=== PATIENT | female | born 1960 | race Caucasian/White ===

== ENCOUNTER 2017-02-03 08:18 | Inpatient (IN) | payer MEDICAID ==
--- NOTE | 2017-02-03 08:42 | ED Physician Chart ---
ED Chief Complaint/HPI - Patient Information Date Seen:: 02/03/17 Time Seen:: 08:25 Chief Complaint:: G-Tube Dysfunction History of Present Illness:: onset x 2 days of G-Tube Dysfunction with redness around G-Tube site; no report of trauma, H/As, neck pain, C/P, cough, SOB, Abd/Flank Pain, A/N/V/D/C, fever, chills, or urinary s/s Allergies:: Allergies Allergy/AdvReac Type Severity Reaction Status Date / Time codeine Allergy Verified 02/03/17 08:23 Vitals:: Vital Signs - 8 hr 02/03/17 08:23 Temp 98.1 F HR 81 RR 18 BP 145/88 O2 Sat % 96 Historian:: Patient, EMS Review:: Nurse's Note Reviewed, EMS run form Reviewed ED Review of Systems - Review of Systems General/Constitutional: Fever, No chills, No weight loss, No weakness, No diaphoresis, No edema, No loss of appetite Skin: No skin lesions, No rash, No bruising Head: No headache, No light-headedness Eyes: No loss of vision, No pain, No diplopia ENT: No earache, No nasal drainage, No sore throat, No tinnitus Neck: No neck pain, No swelling, No thyromegaly, No stiffness, No mass noted Cardio Vascular: No chest pain, No palpitations, No PND, No orthopnea, No edema Pulmonary: SOB, Cough, No sputum, No wheezing GI: No nausea, No vomiting, No diarrhea, No pain, No melena, No hematochezia, No constipation, No hematemesis G/U: No dysuria, No frequency, No hematuria 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, No abnormal vaginal bleed, No contraction Musculoskeletal: No bone or joint pain, No back pain, No muscle pain Endocrine: No polyuria, No polydipsia Psychiatric: No prior psych history, No depression, No anxiety, No suicidal ideation, No homicidal ideation, No auditory hallucination, No visual hallucination Hematopoietic: No bruising, No lymphadenopathy Allergic/Immuno: No urticaria, No angioedema Neurological: No syncope, Focal symptoms, Weakness, Paresthesia, Headache, No seizure, Dizziness, Confusion, Vertigo ED Past Medical History - Past Medical History Obtainable: Yes Past Medical History: HTN, Asthma/COPD, CVA/TIA, Dyslipidemia Family History: Diabetes Melitus, HTN Social History: Non Smoker, No Alcohol, No Drug Use, Single, Care Facility Surgical History: PEG/GTube (Tracheostomy) Psychiatricy History: None Medication: Reviewed Family Medical History - Family Member Mother History Unknown: Yes ED Physical Exam - Physical Examination General/Constitutional: Awake, Well-developed, well-nourished, Alert, No distress, GCS 15, Non-toxic appearing, Ambulatory Head: Atraumatic Eyes: Lids, conjuctiva normal, PERRL, EOMI Skin: Nl inspection, No rash, No skin lesions, No ecchymosis, Well hydrated, No lymphadenopathy ENMT: External ears, nose nl, Nasal exam nl, Lips, teeth, gums nl Neck: Nontender, Full ROM w/o pain, No JVD, No nuchal rigidity, No bruit, No mass, No stridor Respiratory: Nl effort/Exclusion, Clear to Auscultation, No Wheeze/Rhonchi/Rales Cardio Vascular: RRR, No murmur, gallop, rubs, NL S1 S2 GI: No tenderness/rebounding/guarding, No organomegaly, No hernia, Normal BS's, Nondistended, No mass/bruits, No McBurney tenderness Other GI comments:: + G-Tube Dysfunction with localized Cellulitis : No CVA tenderness Extremities: No tenderness or effusion, Full ROM, normal strength in all extremities, No edema, Normal digits & nails Neuro/Psych: Alert/oriented, DTR's symmetric, Normal sensory exam, Normal motor strength, Judgement/insight normal, Mood normal, Normal gait, No focal deficits Other Neuro/Psych comments:: + left facial droop due to old CVA Misc: Normal back, No paraspinal tenderness ED Labs/Radiology/EKG Results - Lab Results Comments:: U/A: + Pyuria - Radiology Results Comments:: CXR: NAD ED Septic Shock - . Is Septic Shock (SBP<90, OR Lactate>4 mmol\L) present?: No - <6hrs of presentation: Vital Signs: Vital Signs - 8 hr 02/03/17 08:23 Temp 98.1 F HR 81 RR 18 BP 145/88 O2 Sat % 96 ED Reassessment (Disposition) - Reassessment Reassessment Condition:: Improved - Diagnosis Diagnosis:: G-Tube Dysfunction; Cellulitis; UTI; Urospsis; Sepsis - Aftercare/Follow up Instructions Aftercare/Follow-Up Instructions:: Counseled pt regarding lab results/diagnosis & need follow up, Counseled pt & family regarding lab results/diagnosis & need follow up - Patient Disposition Discharge/Transfer:: Acute Care w/in this hosp Accepting Physician:: Dr. Thompson Time Called:: 1045 Time Responded:: 10:45 Admitted to:: Med/Surg Spoke to:: Dr. Thompson Admitting Medical Physician:: Dr. Thompson Condition at Disposition:: Stable, Improved
[2017-02-03] MEDS ORDERED: cefTRIAXone 1 GM in Sodium Chloride 0.9% 50 ML IV ONE (08:45)
[2017-02-03 08:57] LABS: % BASOPHILS 1.1 % (0.0-2.0); % EOSINOPHILS 2.3 % (0.0-5.0); % LYMPHOCYTES 39.2 % (20.0-50.0); % MONOCYTES 8.5 % (2.0-10.0); % NEUTROPHILS 48.9 % (40.0-80.0); HEMATOCRIT 46.3 % (41.0-60); HEMOGLOBIN 15.3 gm/dL (12-16); MEAN CELL VOLUME 92.6 fl (81-100); MEAN CORPUSCULAR HEMOGLOBIN 30.7 pg (27.0-31.0); MEAN CORPUSCULAR HGB CONC 33.1 pg (28.0-36.0); MEAN PLATELET VOLUME 8.8 fl; NEUTROPHILE ABSOLUTE 3.1 Th/cmm (1.8-8.0); PLATELET COUNT 279 Th/cmm (150-400); RED CELL DISTRIBUTION WIDTH 12.6 % (11.5-20.0); WHITE BLOOD COUNT 6.6 Th/cmm (4.8-10.8)
--- NOTE | 2017-02-03 09:09 | Diagnostic Imaging Report ---
Portable chest x-ray History: Pain Allowing for portable technique the heart size is normal. Atherosclerotic calcification seen in the aorta. No focal pulmonary parenchymal processes. No hilar or mediastinal abnormalities. Impression: 1. No acute abnormalities 2. Atherosclerotic vascular changes
[2017-02-03 09:12] LABS: PROTHROMBIN TIME (TEST) 10.4 SECONDS (9.5-11.5)
[2017-02-03 09:16] LABS: ALB/GLOB RATIO 1.5 (1.0-1.8); ALKALINE PHOSPHATASE 76 U/L (34-104); ANION GAP 11.2 (7.0-16.0); BILIRUBIN,TOTAL 0.7 mg/dL (0.3-1.0); BUN - UREA NITROGEN 16 mg/dL (7-25); BUN/CREATININE RATIO 26.7; CALCIUM SERUM 9.8 mg/dL (8.6-10.3); CARBON DIOXIDE 30.3 mEq/L (21.0-31.0); CHLORIDE 103 mEq/L (98-107); CHOLESTEROL 167 mg/dL (<200); CREATININE - SERUM 0.6 mg/dL (0.6-1.2); GLUCOSE 92 mg/dL (70-105); POTASSIUM SERUM 3.5 mEq/L (3.5-5.1); SGOT 18 U/L (13-39); SGPT/ALT 22 U/L (7-52); SODIUM SERUM 141 mEq/L (136-145); TRIGLYCERIDES 81 mg/dL (<150)
[2017-02-03 09:22] LABS: PROTHROMBIN TIME (TEST) 10.4 SECONDS (9.5-11.5)
[2017-02-03 09:51] LABS: URINE BILIRUBIN NEGATIVE (NEGATIVE); URINE BLOOD TRACE (NEGATIVE); URINE GLUCOSE (UA) NEGATIVE (NEGATIVE); URINE KETONE NEGATIVE (NEGATIVE); URINE PROTEIN TRACE mg/dL (NEGATIVE)
[2017-02-03 09:57] LABS: URINE COLOR YELLOW
[2017-02-03 10:01] LABS: URINE BACTERIA 3+ /hpf (NONE SEEN); URINE EPITHELIAL CELLS MODERATE /lpf (FEW)
[2017-02-03] MEDS ORDERED: Albuterol/Ipratropium Neb 3 ML AERS HHN PRN (12:23)
[2017-02-03] MEDS ORDERED: Magnesium Hydroxide (MOM) 30 mL UDC GT PRN (12:23)
[2017-02-03] MEDS ORDERED: Albuterol Nebulizer 2.5mg/3mL HHN PRN (12:29)
[2017-02-03] MEDS ORDERED: guaiFENesin 200 MG/10 ML UDC PO PRN (12:29)
[2017-02-03] MEDS ORDERED: Ipratropium Neb 0.5 mg/2.5 mL UD HHN PRN (12:29)
--- NOTE | 2017-02-03 12:29 | Internal Medicine Prog Note ---
Internal Medicine Subjective - Subjective Service Date: 02/03/17 ([id number] HNP DICTATED) Internal Medicine Objective - Results Result Diagrams: 02/03/17 08:30 02/03/17 08:30 Recent Labs: Laboratory Last Values WBC 6.6 Th/cmm (4.8-10.8) 02/03/17 08:30 RBC 5.00 Mil/cmm (3.80-5.10) 02/03/17 08:30 Hgb 15.3 gm/dL (12-16) 02/03/17 08:30 Hct 46.3 % (41.0-60) 02/03/17 08:30 MCV 92.6 fl (81-100) 02/03/17 08:30 MCH 30.7 pg (27.0-31.0) 02/03/17 08:30 MCHC Differential 33.1 pg (28.0-36.0) 02/03/17 08:30 RDW 12.6 % (11.5-20.0) 02/03/17 08:30 Plt Count 279 Th/cmm (150-400) 02/03/17 08:30 MPV 8.8 fl 02/03/17 08:30 Neutrophils % 48.9 % (40.0-80.0) 02/03/17 08:30 Lymphocytes % 39.2 % (20.0-50.0) 02/03/17 08:30 Monocytes % 8.5 % (2.0-10.0) 02/03/17 08:30 Eosinophils % 2.3 % (0.0-5.0) 02/03/17 08:30 Basophils % 1.1 % (0.0-2.0) 02/03/17 08:30 PT 10.4 SECONDS (9.5-11.5) 02/03/17 08:44 INR 1.00 (0.5-1.4) 02/03/17 08:44 PTT (Actin FS) 26.3 SECONDS (26.0-38.0) 02/03/17 08:44 Sodium 141 mEq/L (136-145) 02/03/17 08:30 Potassium 3.5 mEq/L (3.5-5.1) 02/03/17 08:30 Chloride 103 mEq/L (98-107) 02/03/17 08:30 Carbon Dioxide 30.3 mEq/L (21.0-31.0) 02/03/17 08:30 Anion Gap 11.2 (7.0-16.0) 02/03/17 08:30 BUN 16 mg/dL (7-25) 02/03/17 08:30 Creatinine 0.6 mg/dL (0.6-1.2) 02/03/17 08:30 Est GFR ( Amer) > 60.0 ml/min (>90) 02/03/17 08:30 Est GFR (Non-Af Amer) > 60.0 ml/min 02/03/17 08:30 BUN/Creatinine Ratio 26.7 02/03/17 08:30 Glucose 92 mg/dL (70-105) 02/03/17 08:30 Whole Bld Lactic Acid 0.79 mmol/L (0.60-1.99) 02/03/17 09:25 Calcium 9.8 mg/dL (8.6-10.3) 02/03/17 08:30 Total Bilirubin 0.7 mg/dL (0.3-1.0) 02/03/17 08:30 AST 18 U/L (13-39) 02/03/17 08:30 ALT 22 U/L (7-52) 02/03/17 08:30 Alkaline Phosphatase 76 U/L (34-104) 02/03/17 08:30 Creatine Kinase 40 U/L (30-223) 02/03/17 08:30 Troponin I 0.01 ng/mL (0.01-0.05) 02/03/17 08:30 B-Natriuretic Peptide 52.3 pg/mL (5.0-100.0) 02/03/17 08:30 Total Protein 7.5 gm/dL (6.0-8.3) 02/03/17 08:30 Albumin 4.5 gm/dL (3.7-5.3) 02/03/17 08:30 Globulin 3.0 gm/dL 02/03/17 08:30 Albumin/Globulin Ratio 1.5 (1.0-1.8) 02/03/17 08:30 Triglycerides 81 mg/dL (<150) 02/03/17 08:30 Cholesterol 167 mg/dL (<200) 02/03/17 08:30 LDL Cholesterol Direct 84 mg/dL (75-193) 02/03/17 08:30 HDL Cholesterol 64 mg/dL (23-92) 02/03/17 08:30 Urine Source MIDSTREAM 02/03/17 09:30 Urine Color YELLOW 02/03/17 09:30 Urine Clarity CLOUDY (CLEAR) H 02/03/17 09:30 Urine pH 7.0 (4.6 - 8.0) 02/03/17 09:30 Ur Specific [place] 1.015 (1.005-1.030) 02/03/17 09:30 Urine Protein TRACE mg/dL (NEGATIVE) 02/03/17 09:30 Urine Glucose (UA) NEGATIVE mg/dL (NEGATIVE) 02/03/17 09:30 Urine Ketones NEGATIVE mg/dL (NEGATIVE) 02/03/17 09:30 Urine Blood TRACE (NEGATIVE) 02/03/17 09:30 Urine Nitrate NEGATIVE (NEGATIVE) 02/03/17 09:30 Urine Bilirubin NEGATIVE (NEGATIVE) 02/03/17 09:30 Urine Urobilinogen 1.0 E.U./dL (0.2 - 1.0) 02/03/17 09:30 Ur Leukocyte Esterase LARGE (NEGATIVE) H 02/03/17 09:30 Urine RBC 2-5 /hpf (0-5) 02/03/17 09:30 Urine WBC 6-10 /hpf (0-5) H 02/03/17 09:30 Ur Epithelial Cells MODERATE /lpf (FEW) 02/03/17 09:30 Urine Bacteria 3+ /hpf (NONE SEEN) H 02/03/17 09:30 - Physical Exam Vitals and I&O: Vital Signs Temp 98.1 F 02/03/17 11:04 Pulse 82 02/03/17 11:04 Resp 16 02/03/17 11:04 BP 127/85 02/03/17 11:04 Pulse Ox 95 02/03/17 11:04 Active Medications: Current Medications Acetaminophen (Tylenol) 650 mg GT Q4HR PRN PRN Reason: PAIN OR TEMP >100.4 Stop: 04/04/17 12:22 Albuterol/Ipratropium (Duoneb Neb) 3 ml HHN Q2H PRN PRN Reason: SOB/WHEEZING Stop: 04/04/17 12:22 Amlodipine Besylate (Norvasc) 10 mg GT DAILY [facility] Stop: 04/05/17 08:59 Docusate Sodium (Colace) 100 mg PO BID [facility] Stop: 04/04/17 16:59 Enalapril Maleate (Vasotec) 20 mg GT Q12H [facility] Stop: 04/04/17 12:29 Famotidine (Pepcid) 20 mg GT Q12H [facility] Stop: 04/04/17 12:29 Hydralazine HCl (Apresoline) 50 mg GT Q8H [facility] Stop: 04/04/17 12:29 Magnesium Hydroxide (Milk Of Magnesia) 30 ml GT DAILY PRN PRN Reason: Constipation Stop: 04/04/17 12:22 Metoprolol Tartrate (Lopressor) 50 mg GT Q12H [facility] Stop: 04/04/17 12:29 Miscellaneous (Ascorbic Acid) 500 mg GT DAILY [facility] Stop: 04/05/17 08:59 Miscellaneous (Atorvastatin Calcium [Lipitor]) 40 mg GT HS [facility] Stop: 04/04/17 20:59 Miscellaneous (Ferrous Sulfate [Ferrous Sulfate]) 330 mg GT Q12H [facility] Stop: 04/04/17 12:29 Internal Medicine Assmt/Plan - Assessment Assessment: ACUTE UTI GT CELLULITIS GT MALFUNCTION ASTHMA DYSLIPIDEMIA HX TIA/CVA COPD
[2017-02-03] MEDS: D5-0.45NS 1,000 ML IV SCH (13:18)
--- NOTE | 2017-02-03 14:46 | History & Physical ---
ADMIT DATE: 02/03/2017 CHIEF COMPLAINT: G-tube malfunction. HISTORY OF PRESENT ILLNESS: This is a 56-year-old female who is a resident of [facility] who is brought here to [facility] due to G-tube malfunction. The patient's G-tube was also noted with redness around the G-tube site. No discharge noted. The patient did not have any fevers. PAST MEDICAL HISTORY: Hypertension, asthma, COPD, CVA, TIA, and dyslipidemia. SOCIAL HISTORY: The patient is a shelter resident, requiring 24-hour nursing care. PAST SURGICAL HISTORY: PEG and tracheostomy. MEDICATIONS: Please see medication reconciliation. FAMILY HISTORY: Noncontributory. REVIEW OF SYSTEMS: GENERAL: Denies any fevers, any chills. CARDIOVASCULAR: Denies chest pain. RESPIRATORY: Denies any shortness of breath or any cough. GASTROINTESTINAL: Denies nausea, vomiting, or abdominal pain. GENITOURINARY: Denies dysuria. All other systems are reviewed by me and are negative. PHYSICAL EXAMINATION: GENERAL: The patient is awake, alert, no present distress. VITAL SIGNS: Temperature 98.1, heart rate 82, blood pressure 127/85, respirations 16, and O2 95%. HEENT: Head; normocephalic, atraumatic. NECK: Supple. No mass. LUNGS: Clear bilaterally. HEART: Regular rate. ABDOMEN: Nondistended and nontender. G-tube site is noted with the redness. LABORATORY DATA: WBC 6.6, H and H 15.3 and 46.3, and platelet of 279. Sodium 141, potassium 3.5, chloride 103, BUN 16, creatinine 0.6. The patient had a urinalysis done, positive for UTI. DIAGNOSTICS: The patient had a chest x-ray done and the impression, is no acute abnormalities, atherosclerotic vascular changes. ASSESSMENT: Acute urinary tract infection, G-tube site cellulitis, G-tube malfunction, hypertension, asthma, history of cerebrovascular accident, and dyslipidemia. PLAN: The patient will be admitted to the med/surg unit. We will keep the patient n.p.o. Keep the patient on IV fluids for hydration. ____ patient on empiric IV antibiotics of Rocephin. We will monitor patient's electrolytes levels. GI will be on the case. We will continue to follow this patient. [facility]# [id number]
[2017-02-03] MEDS: cefTRIAXone 1 GM in Sodium Chloride 0.9% 50 ML IV SCH (15:22)
[2017-02-03] MEDS ORDERED: Diatrizoate Meglumine/Diatri 30 mL Sol PO ONE (16:16)
--- NOTE | 2017-02-03 19:34 | Operative Report ---
DATE OF SURGERY: 02/03/2017 PROCEDURE: G-tube replacement. DESCRIPTION OF THE PROCEDURE: The procedure took place at the bedside in the Medical[facility]Surgical unit of [facility]. The patient was kept in a supine position. The existing original type G-tube was removed by traction method. Using the same gastrocutaneous fistula site, a new 20-[place] replacement G-tube was inserted into the stomach and its inner balloon tip was inflated using 15 mL of sterile water. The outer bumper was placed as close to the skin as possible. Overlying dressing was placed. The tip was noted to be in good position. The patient tolerated the procedure well. No complications are anticipated. RECOMMENDATION: 1. We will obtain Gastrografin KUB to confirm that the G-tube is in position. Once this is confirmed, then may use G-tube for water flushes and medications and tube feedings as tolerated. 2. Oral diet as tolerated as well. Thank you Dr. Rayray Thompson for involving us in the care of your patient. If you have any further questions, please call us. JOB# [id number] [email or web address]
[2017-02-03] MEDS: Ferrous Sulfate 300 MG/5 ML UDC PO SCH (21:54)
--- NOTE | 2017-02-03 22:18 | Consultation ---
DATE OF CONSULTATION: 02/03/2017 REQUESTING PHYSICIAN: Rayray Thompson M.D. REASON FOR CONSULTATION: G-tube malfunction. HISTORY OF PRESENT ILLNESS: The patient is a 56-year-old female who is a residential resident with hypertension, COPD, asthma, old stroke, old TIA, and dyslipidemia with her existing G-tube. There was noted to be leakage around the G-tube and it was noted to be malfunctioning. We were asked to evaluate the patient for consideration of G-tube replacement. PAST MEDICAL HISTORY: As above. PAST SURGICAL HISTORY: The patient has had a previous tracheostomy, which has now been decannulated. MEDICATIONS: Here are acetaminophen, albuterol, amlodipine, vitamin C, Lipitor, Rocephin, Colace, Vasotec, Pepcid, iron, Robitussin, hydralazine, milk of magnesia, Lopressor, and Zofran. ALLERGIES: CODEINE. SOCIAL HISTORY: No recent tobacco, alcohol, or drugs. FAMILY HISTORY: Noncontributory. REVIEW OF SYSTEMS: Negative. PHYSICAL EXAMINATION: VITAL SIGNS: Temperature 98.2, blood pressure 138/91, pulse of 104, respirations 18, and O2 sat 98%. GENERAL: The patient is well-developed thin female in no acute distress. HEENT: Sclerae nonicteric. Oropharynx is clear. CARDIOVASCULAR: Regular rate and rhythm. LUNGS: Clear to auscultation bilaterally. ABDOMEN: Soft, nontender. There is an intact original type G-tube with broken stem. EXTREMITIES: No clubbing, cyanosis, or edema. RECTAL: Deferred. LABORATORY DATA AND IMAGING: Complete blood count is normal. INR is normal. Creatinine is normal. Liver enzymes and cholesterol are normal. Albumin is 4.5. IMPRESSION: 1. Dysphagia with G-tube malfunction, requires G-tube replacement. 2. Hypertension. 3. Chronic obstructive pulmonary disease. 4. Old stroke. RECOMMENDATIONS: 1. G-tube replacement to take place at bedside. 2. Further recommendations following this intervention. 3. Continue medications for now. Thank you Dr. Rayray Thompson for involving us in the care of your patient. If you have any further questions, please call us. JOB# [id number] [facility]
[2017-02-04] MEDS: D5-0.45NS 1,000 ML IV SCH ×2 (00:41→16:30)
--- NOTE | 2017-02-04 08:00 | Diagnostic Imaging Report ---
Exam: Gastrostomy tube placement. Findings: After injection of contrast material into the gastrostomy tube there is normal opacification of the stomach. IMPRESSION: gastrostomy tube in stomach . Incidentally noted fecal impaction.
[2017-02-04] MEDS: Ferrous Sulfate 300 MG/5 ML UDC PO SCH ×2 (08:48→22:13)
--- NOTE | 2017-02-04 13:02 | Internal Medicine Prog Note ---
Internal Medicine Subjective - Subjective Patient seen and examined:: with staff, chart reviewed Patient is:: awake, verbal, interactive Patient Complaints of:: congestion, pain with urination Per staff patient has:: no adverse event, poor appetite, tolerating meds Internal Medicine Objective - Results Result Diagrams: 02/03/17 08:30 02/03/17 08:30 Recent Labs: Laboratory Last Values WBC 6.6 Th/cmm (4.8-10.8) 02/03/17 08:30 RBC 5.00 Mil/cmm (3.80-5.10) 02/03/17 08:30 Hgb 15.3 gm/dL (12-16) 02/03/17 08:30 Hct 46.3 % (41.0-60) 02/03/17 08:30 MCV 92.6 fl (81-100) 02/03/17 08:30 MCH 30.7 pg (27.0-31.0) 02/03/17 08:30 MCHC Differential 33.1 pg (28.0-36.0) 02/03/17 08:30 RDW 12.6 % (11.5-20.0) 02/03/17 08:30 Plt Count 279 Th/cmm (150-400) 02/03/17 08:30 MPV 8.8 fl 02/03/17 08:30 Neutrophils % 48.9 % (40.0-80.0) 02/03/17 08:30 Lymphocytes % 39.2 % (20.0-50.0) 02/03/17 08:30 Monocytes % 8.5 % (2.0-10.0) 02/03/17 08:30 Eosinophils % 2.3 % (0.0-5.0) 02/03/17 08:30 Basophils % 1.1 % (0.0-2.0) 02/03/17 08:30 PT 10.4 SECONDS (9.5-11.5) 02/03/17 08:44 INR 1.00 (0.5-1.4) 02/03/17 08:44 PTT (Actin FS) 26.3 SECONDS (26.0-38.0) 02/03/17 08:44 Sodium 141 mEq/L (136-145) 02/03/17 08:30 Potassium 3.5 mEq/L (3.5-5.1) 02/03/17 08:30 Chloride 103 mEq/L (98-107) 02/03/17 08:30 Carbon Dioxide 30.3 mEq/L (21.0-31.0) 02/03/17 08:30 Anion Gap 11.2 (7.0-16.0) 02/03/17 08:30 BUN 16 mg/dL (7-25) 02/03/17 08:30 Creatinine 0.6 mg/dL (0.6-1.2) 02/03/17 08:30 Est GFR ( Amer) > 60.0 ml/min (>90) 02/03/17 08:30 Est GFR (Non-Af Amer) > 60.0 ml/min 02/03/17 08:30 BUN/Creatinine Ratio 26.7 02/03/17 08:30 Glucose 92 mg/dL (70-105) 02/03/17 08:30 Whole Bld Lactic Acid 0.79 mmol/L (0.60-1.99) 02/03/17 09:25 Calcium 9.8 mg/dL (8.6-10.3) 02/03/17 08:30 Total Bilirubin 0.7 mg/dL (0.3-1.0) 02/03/17 08:30 AST 18 U/L (13-39) 02/03/17 08:30 ALT 22 U/L (7-52) 02/03/17 08:30 Alkaline Phosphatase 76 U/L (34-104) 02/03/17 08:30 Creatine Kinase 40 U/L (30-223) 02/03/17 08:30 Troponin I 0.01 ng/mL (0.01-0.05) 02/03/17 08:30 B-Natriuretic Peptide 52.3 pg/mL (5.0-100.0) 02/03/17 08:30 Total Protein 7.5 gm/dL (6.0-8.3) 02/03/17 08:30 Albumin 4.5 gm/dL (3.7-5.3) 02/03/17 08:30 Globulin 3.0 gm/dL 02/03/17 08:30 Albumin/Globulin Ratio 1.5 (1.0-1.8) 02/03/17 08:30 Triglycerides 81 mg/dL (<150) 02/03/17 08:30 Cholesterol 167 mg/dL (<200) 02/03/17 08:30 LDL Cholesterol Direct 84 mg/dL (75-193) 02/03/17 08:30 HDL Cholesterol 64 mg/dL (23-92) 02/03/17 08:30 Urine Source MIDSTREAM 02/03/17 09:30 Urine Color YELLOW 02/03/17 09:30 Urine Clarity CLOUDY (CLEAR) H 02/03/17 09:30 Urine pH 7.0 (4.6 - 8.0) 02/03/17 09:30 Ur Specific [place] 1.015 (1.005-1.030) 02/03/17 09:30 Urine Protein TRACE mg/dL (NEGATIVE) 02/03/17 09:30 Urine Glucose (UA) NEGATIVE mg/dL (NEGATIVE) 02/03/17 09:30 Urine Ketones NEGATIVE mg/dL (NEGATIVE) 02/03/17 09:30 Urine Blood TRACE (NEGATIVE) 02/03/17 09:30 Urine Nitrate NEGATIVE (NEGATIVE) 02/03/17 09:30 Urine Bilirubin NEGATIVE (NEGATIVE) 02/03/17 09:30 Urine Urobilinogen 1.0 E.U./dL (0.2 - 1.0) 02/03/17 09:30 Ur Leukocyte Esterase LARGE (NEGATIVE) H 02/03/17 09:30 Urine RBC 2-5 /hpf (0-5) 02/03/17 09:30 Urine WBC 6-10 /hpf (0-5) H 02/03/17 09:30 Ur Epithelial Cells MODERATE /lpf (FEW) 02/03/17 09:30 Urine Bacteria 3+ /hpf (NONE SEEN) H 02/03/17 09:30 - Physical Exam Vitals and I&O: Vital Signs Temp 97.4 F 02/04/17 11:45 Pulse 74 02/04/17 12:18 Resp 17 02/04/17 11:45 BP 98/63 02/04/17 12:18 Pulse Ox 96 02/04/17 11:45 Intake & Output 02/03/17 02/04/17 02/04/17 18:59 06:59 18:59 Intake Total 13.333 1100 Balance 13.333 1100 Weight (lbs) 47.174 kg Intake: Intake, IV Amount 13.333 1000 D5-0.45NS 1,000 ml @ 100 1000 mls/hr IV .Q10H [facility] Rx#: [id number] cefTRIAXone 1 gm In 13.333 Sodium Chloride 0.9% 50 ml @ 100 mls/hr IV Q24HR [facility] Rx#:[id number] Oral 100 Other: # Voids 2 # Bowel Movements 1 Active Medications: Current Medications Acetaminophen (Tylenol 650mg/20.3ml Suspension) 650 mg GT Q4H PRN PRN Reason: PAIN OR TEMP >100.4 Stop: 04/04/17 12:22 Acetaminophen (Tylenol 650mg/20.3ml Suspension) 650 mg PO Q4H PRN PRN Reason: Pain Or Fever above 101 Stop: 04/04/17 12:28 Albuterol Sulfate (Albuterol 2.5mg/3ml Neb Ud) 2.5 mg HHN Q2HRT PRN PRN Reason: Shortness of Breath or Wheeze Stop: 04/04/17 12:28 Albuterol/Ipratropium (Duoneb Neb) 3 ml HHN Q2HRT PRN PRN Reason: SOB/WHEEZING Stop: 04/04/17 12:22 Amlodipine Besylate (Norvasc) 10 mg GT DAILY [facility] Stop: 04/04/17 13:59 Last Admin: 02/04/17 09:54 Dose: Not Given Ascorbic Acid (Vitamin C) 500 mg GT DAILY [facility] Stop: 04/04/17 13:59 Last Admin: 02/04/17 08:50 Dose: 500 mg Atorvastatin Calcium (Lipitor) 40 mg GT HS [facility] Stop: 04/04/17 20:59 Last Admin: 02/03/17 21:55 Dose: 40 mg Docusate Sodium (Colace) 100 mg PO BID [facility] Stop: 04/04/17 16:59 Last Admin: 02/04/17 08:50 Dose: 100 mg Enalapril Maleate (Vasotec) 20 mg GT Q12HR [facility] Stop: 04/04/17 13:59 Last Admin: 02/04/17 09:54 Dose: Not Given Famotidine (Pepcid) 20 mg GT Q12HR [facility] Stop: 04/04/17 13:59 Last Admin: 02/04/17 08:50 Dose: 20 mg Ferrous Sulfate (Iron) 300 mg PO Q12HR [facility] Stop: 04/04/17 20:59 Last Admin: 02/04/17 08:48 Dose: 300 mg Guaifenesin (Robitussin) 100 mg PO Q4H PRN PRN Reason: Cough or Congestion Stop: 04/04/17 12:28 Hydralazine HCl (Apresoline) 50 mg GT Q8HR [facility] Stop: 04/04/17 13:59 Last Admin: 02/04/17 12:18 Dose: Not Given Dextrose/Sodium Chloride (D5-0.45ns) 1,000 mls @ 100 mls/hr IV .Q10H [facility] Stop: 04/04/17 12:29 Last Admin: 02/04/17 00:41 Dose: 100 mls/hr Ceftriaxone Sodium 1 gm/ (Sodium Chloride) 50 mls @ 100 mls/hr IV Q24HR [facility] Stop: 04/04/17 13:59 Last Infusion: 02/03/17 15:30 Dose: 0 mls/hr Ipratropium [place] (Atrovent Neb 0.5mg/2.5ml) 0.5 mg HHN Q2HRT PRN PRN Reason: Shortness of Breath or Wheeze Stop: 04/04/17 12:28 Magnesium Hydroxide (Milk Of Magnesia) 30 ml GT DAILY PRN PRN Reason: Constipation Stop: 04/04/17 12:22 Metoprolol Tartrate (Lopressor) 50 mg GT Q12HR [facility] Stop: 04/04/17 13:59 Last Admin: 02/04/17 09:54 Dose: Not Given Ondansetron HCl (Zofran) 4 mg IV Q8H PRN PRN Reason: Nausea / Vomiting Stop: 04/04/17 12:28 General: congested, appears older HEENT: NC/AT, PERRLA Neck: Supple, No LAD, deformity Lungs: CTAB Cardiovascular: RRR, Normal S1, Normal S2 Abdomen: soft, tender, +GT, +GT - redness Extremities: excoriation Neurological: no change - Procedures Procedures: Procedures Procedure Code Date CHANGE FEEDING DEVICE IN UP INTEST TRACT, [employer] F[employer]ER APPROACH [id number] 02/03/17 Internal Medicine Assmt/Plan - Assessment Assessment: ACUTE UTI GT CELLULITIS GT MALFUNCTION ASTHMA DYSLIPIDEMIA HX TIA/CVA COPD - Plan Plan: cont on ivf cont on iv abx gi folow up gt replacement cpm dw rn
[2017-02-04] MEDS: cefTRIAXone 1 GM in Sodium Chloride 0.9% 50 ML IV SCH (13:15)
[2017-02-05] MEDS: D5-0.45NS 1,000 ML IV SCH ×2 (05:59→10:19)
[2017-02-05 06:22] LABS: % BASOPHILS 0.8 % (0.0-2.0); % EOSINOPHILS 2.3 % (0.0-5.0); % LYMPHOCYTES 34.3 % (20.0-50.0); % MONOCYTES 10.4 % (2.0-10.0); % NEUTROPHILS 52.2 % (40.0-80.0); MEAN CELL VOLUME 93.1 fl (81-100); MEAN CORPUSCULAR HEMOGLOBIN 31.2 pg (27.0-31.0); MEAN CORPUSCULAR HGB CONC 33.5 pg (28.0-36.0); MEAN PLATELET VOLUME 8.6 fl; NEUTROPHILE ABSOLUTE 3.3 Th/cmm (1.8-8.0); RED BLOOD COUNT 3.99 Mil/cmm (3.80-5.10); RED CELL DISTRIBUTION WIDTH 13.1 % (11.5-20.0); WHITE BLOOD COUNT 6.1 Th/cmm (4.8-10.8)
[2017-02-05 06:23] LABS: HEMATOCRIT 37.1 % (41.0-60); HEMOGLOBIN 12.4 gm/dL (12-16); PLATELET COUNT 216 Th/cmm (150-400)
[2017-02-05 06:37] LABS: ANION GAP 7.7 (7.0-16.0); BUN - UREA NITROGEN 12 mg/dL (7-25); CALCIUM SERUM 8.4 mg/dL (8.6-10.3); CARBON DIOXIDE 27.9 mEq/L (21.0-31.0); CHLORIDE 108 mEq/L (98-107); CREATININE - SERUM 0.6 mg/dL (0.6-1.2); GLUCOSE 97 mg/dL (70-105); MAGNESIUM 1.8 mg/dL (1.9-2.7); POTASSIUM SERUM 3.6 mEq/L (3.5-5.1); SODIUM SERUM 140 mEq/L (136-145)
[2017-02-05] MEDS: Ferrous Sulfate 300 MG/5 ML UDC PO SCH (10:19)
--- NOTE | 2017-02-05 13:10 | Internal Medicine Prog Note ---
Internal Medicine Subjective - Subjective Service Date: 02/05/17 ([id number] DC SUMMARY) Patient is:: awake, verbal, interactive Patient Complaints of:: congestion, pain with urination Per staff patient has:: no adverse event, poor appetite, tolerating meds Internal Medicine Objective - Results Result Diagrams: 02/05/17 05:40 02/05/17 05:40 Recent Labs: Laboratory Last Values WBC 6.1 Th/cmm (4.8-10.8) 02/05/17 05:40 RBC 3.99 Mil/cmm (3.80-5.10) 02/05/17 05:40 Hgb 12.4 gm/dL (12-16) D 02/05/17 05:40 Hct 37.1 % (41.0-60) L D 02/05/17 05:40 MCV 93.1 fl (81-100) 02/05/17 05:40 MCH 31.2 pg (27.0-31.0) H 02/05/17 05:40 MCHC Differential 33.5 pg (28.0-36.0) 02/05/17 05:40 RDW 13.1 % (11.5-20.0) 02/05/17 05:40 Plt Count 216 Th/cmm (150-400) D 02/05/17 05:40 MPV 8.6 fl 02/05/17 05:40 Neutrophils % 52.2 % (40.0-80.0) 02/05/17 05:40 Lymphocytes % 34.3 % (20.0-50.0) 02/05/17 05:40 Monocytes % 10.4 % (2.0-10.0) H 02/05/17 05:40 Eosinophils % 2.3 % (0.0-5.0) 02/05/17 05:40 Basophils % 0.8 % (0.0-2.0) 02/05/17 05:40 PT 10.4 SECONDS (9.5-11.5) 02/03/17 08:44 INR 1.00 (0.5-1.4) 02/03/17 08:44 PTT (Actin FS) 26.3 SECONDS (26.0-38.0) 02/03/17 08:44 Sodium 140 mEq/L (136-145) 02/05/17 05:40 Potassium 3.6 mEq/L (3.5-5.1) 02/05/17 05:40 Chloride 108 mEq/L (98-107) H 02/05/17 05:40 Carbon Dioxide 27.9 mEq/L (21.0-31.0) 02/05/17 05:40 Anion Gap 7.7 (7.0-16.0) 02/05/17 05:40 BUN 12 mg/dL (7-25) 02/05/17 05:40 Creatinine 0.6 mg/dL (0.6-1.2) 02/05/17 05:40 Est GFR ( Amer) > 60.0 ml/min (>90) 02/05/17 05:40 Est GFR (Non-Af Amer) > 60.0 ml/min 02/05/17 05:40 BUN/Creatinine Ratio 20.0 02/05/17 05:40 Glucose 97 mg/dL (70-105) 02/05/17 05:40 Whole Bld Lactic Acid 0.79 mmol/L (0.60-1.99) 02/03/17 09:25 Calcium 8.4 mg/dL (8.6-10.3) L 02/05/17 05:40 Magnesium 1.8 mg/dL (1.9-2.7) L 02/05/17 05:40 Total Bilirubin 0.7 mg/dL (0.3-1.0) 02/03/17 08:30 AST 18 U/L (13-39) 02/03/17 08:30 ALT 22 U/L (7-52) 02/03/17 08:30 Alkaline Phosphatase 76 U/L (34-104) 02/03/17 08:30 Ammonia 70 umol/L (16-53) H 02/04/17 13:09 Creatine Kinase 40 U/L (30-223) 02/03/17 08:30 Troponin I 0.01 ng/mL (0.01-0.05) 02/03/17 08:30 B-Natriuretic Peptide 52.3 pg/mL (5.0-100.0) 02/03/17 08:30 Total Protein 7.5 gm/dL (6.0-8.3) 02/03/17 08:30 Albumin 4.5 gm/dL (3.7-5.3) 02/03/17 08:30 Globulin 3.0 gm/dL 02/03/17 08:30 Albumin/Globulin Ratio 1.5 (1.0-1.8) 02/03/17 08:30 Triglycerides 81 mg/dL (<150) 02/03/17 08:30 Cholesterol 167 mg/dL (<200) 02/03/17 08:30 LDL Cholesterol Direct 84 mg/dL (75-193) 02/03/17 08:30 HDL Cholesterol 64 mg/dL (23-92) 02/03/17 08:30 Urine Source MIDSTREAM 02/03/17 09:30 Urine Color YELLOW 02/03/17 09:30 Urine Clarity CLOUDY (CLEAR) H 02/03/17 09:30 Urine pH 7.0 (4.6 - 8.0) 02/03/17 09:30 Ur Specific [place] 1.015 (1.005-1.030) 02/03/17 09:30 Urine Protein TRACE mg/dL (NEGATIVE) 02/03/17 09:30 Urine Glucose (UA) NEGATIVE mg/dL (NEGATIVE) 02/03/17 09:30 Urine Ketones NEGATIVE mg/dL (NEGATIVE) 02/03/17 09:30 Urine Blood TRACE (NEGATIVE) 02/03/17 09:30 Urine Nitrate NEGATIVE (NEGATIVE) 02/03/17 09:30 Urine Bilirubin NEGATIVE (NEGATIVE) 02/03/17 09:30 Urine Urobilinogen 1.0 E.U./dL (0.2 - 1.0) 02/03/17 09:30 Ur Leukocyte Esterase LARGE (NEGATIVE) H 02/03/17 09:30 Urine RBC 2-5 /hpf (0-5) 02/03/17 09:30 Urine WBC 6-10 /hpf (0-5) H 02/03/17 09:30 Ur Epithelial Cells MODERATE /lpf (FEW) 02/03/17 09:30 Urine Bacteria 3+ /hpf (NONE SEEN) H 02/03/17 09:30 - Physical Exam Vitals and I&O: Vital Signs Temp 98.4 F 02/05/17 11:46 Pulse 67 02/05/17 11:46 Resp 18 02/05/17 11:46 BP 117/72 02/05/17 11:46 Pulse Ox 97 02/05/17 11:46 Intake & Output 02/04/17 02/05/17 02/05/17 18:59 06:59 18:59 Intake Total 1000 1000 433.333 Balance 1000 1000 433.333 Weight (lbs) 105 lb 6 oz Intake: Intake, IV Amount 1000 1000 433.333 D5-0.45NS 1,000 ml @ 100 1000 1000 433.333 mls/hr IV .Q10H [facility] Rx#: [id number] cefTRIAXone 1 gm In 0 Sodium Chloride 0.9% 50 ml @ 100 mls/hr IV Q24HR [facility] Rx#:[id number] Other: # Voids 3 # Bowel Movements 0 Active Medications: Current Medications Acetaminophen (Tylenol 650mg/20.3ml Suspension) 650 mg GT Q4H PRN PRN Reason: PAIN OR TEMP >100.4 Stop: 04/04/17 12:22 Acetaminophen (Tylenol 650mg/20.3ml Suspension) 650 mg PO Q4H PRN PRN Reason: Pain Or Fever above 101 Stop: 04/04/17 12:28 Albuterol Sulfate (Albuterol 2.5mg/3ml Neb Ud) 2.5 mg HHN Q2HRT PRN PRN Reason: Shortness of Breath or Wheeze Stop: 04/04/17 12:28 Albuterol/Ipratropium (Duoneb Neb) 3 ml HHN Q2HRT PRN PRN Reason: SOB/WHEEZING Stop: 04/04/17 12:22 Amlodipine Besylate (Norvasc) 10 mg GT DAILY [facility] Stop: 04/04/17 13:59 Last Admin: 02/05/17 10:21 Dose: 10 mg Ascorbic Acid (Vitamin C) 500 mg GT DAILY [facility] Stop: 04/04/17 13:59 Last Admin: 02/05/17 10:21 Dose: 500 mg Atorvastatin Calcium (Lipitor) 40 mg GT HS [facility] Stop: 04/04/17 20:59 Last Admin: 02/04/17 22:13 Dose: 40 mg Docusate Sodium (Colace) 100 mg PO BID [facility] Stop: 04/04/17 16:59 Last Admin: 02/04/17 16:31 Dose: 100 mg Enalapril Maleate (Vasotec) 20 mg GT Q12HR [facility] Stop: 04/04/17 13:59 Last Admin: 02/05/17 10:21 Dose: 20 mg Famotidine (Pepcid) 20 mg GT Q12HR [facility] Stop: 04/04/17 13:59 Last Admin: 02/05/17 10:22 Dose: 20 mg Ferrous Sulfate (Iron) 300 mg PO Q12HR [facility] Stop: 04/04/17 20:59 Last Admin: 02/05/17 10:19 Dose: 300 mg Guaifenesin (Robitussin) 100 mg PO Q4H PRN PRN Reason: Cough or Congestion Stop: 04/04/17 12:28 Hydralazine HCl (Apresoline) 50 mg GT Q8HR [facility] Stop: 04/04/17 13:59 Last Admin: 02/05/17 05:30 Dose: Not Given Dextrose/Sodium Chloride (D5-0.45ns) 1,000 mls @ 100 mls/hr IV .Q10H [facility] Stop: 04/04/17 12:29 Last Admin: 02/05/17 10:19 Dose: 100 mls/hr Ceftriaxone Sodium 1 gm/ (Sodium Chloride) 50 mls @ 100 mls/hr IV Q24HR [facility] Stop: 04/04/17 13:59 Last Admin: 02/04/17 13:15 Dose: 100 mls/hr Ipratropium Parsons (Atrovent Neb 0.5mg/2.5ml) 0.5 mg HHN Q2HRT PRN PRN Reason: Shortness of Breath or Wheeze Stop: 04/04/17 12:28 Magnesium Hydroxide (Milk Of Magnesia) 30 ml GT DAILY PRN PRN Reason: Constipation Stop: 04/04/17 12:22 Metoprolol Tartrate (Lopressor) 50 mg GT Q12HR [facility] Stop: 04/04/17 13:59 Last Admin: 02/05/17 10:20 Dose: Not Given Ondansetron HCl (Zofran) 4 mg IV Q8H PRN PRN Reason: Nausea / Vomiting Stop: 04/04/17 12:28 General: congested, appears older HEENT: NC/AT, PERRLA Neck: Supple, No LAD, deformity Lungs: CTAB Cardiovascular: RRR, Normal S1, Normal S2 Abdomen: soft, tender, +GT, +GT - redness Extremities: excoriation Neurological: no change - Procedures Procedures: Procedures Procedure Code Date CHANGE FEEDING DEVICE IN UP INTEST TRACT, 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
--- NOTE | 2017-02-05 19:57 | Discharge Summary ---
DATE OF DISCHARGE: 02/05/[address] Rayray Thompson. DISCHARGE DIAGNOSES: Acute urinary tract infection, G-tube cellulitis, G-tube malfunction, which has been replaced, hypertension, asthma, history of cerebrovascular accident, and dyslipidemia. HISTORY OF PRESENT ILLNESS: This is a 56-year-old female, a resident at [facility] who is brought here to [facility] due to G-tube malfunction. The patient's G-tube is also noted with redness surrounding the G-tube site, no discharge noted. PHYSICAL EXAMINATION: GENERAL: The patient is a well-developed, well-nourished, in no acute distress. VITAL SIGNS: Stable. HEENT: Normocephalic and atraumatic. NECK: Supple. No mass. LUNGS: Clear bilaterally. HEART: Regular rhythm. ABDOMEN: Soft and nontender. HOSPITAL COURSE: During the hospital stay, the patient was admitted to the med/surg unit. The patient was kept on IV antibiotics of Rocephin due to urinary tract infection. Also, the patient was on IV fluids for hydration. GI was on the case on 02/03/2017. On 02/03/2017, the patient had a G-tube replacement done. The patient tolerated the procedure well. For this reason, the patient is stable for discharge. CONDITION UPON DISCHARGE: Fair. DISPOSITION: [facility]. JOB# [id number]
[2017-02-07 05:18] LABS: FOLIC ACID 10.2 ng/mL (>3.0)
== END 2017-02-05 15:45 | disposition home or self-care (01) | DRG 252 ==
LOC: ER 08:18 → MSI 11:15
PROVIDERS: ADMIT Internal Medicine; ATTEND Internal Medicine
PROC: 0D20XUZ Change Feeding Device in Upper Intestinal Tract, External Approach (ICD-10-PCS; principal; 2017-02-03)
DX: K94.23 Gastrostomy malfunction (principal); A41.9 Sepsis, unspecified organism; L03.311 Cellulitis of abdominal wall; R13.10 Dysphagia, unspecified; N39.0 Urinary tract infection, site not specified; E78.5 Hyperlipidemia, unspecified; J44.9 Chronic obstructive pulmonary disease, unspecified; Y83.8 Other surgical procedures as the cause of abnormal reaction of the patient, or of later complication, without mention of misadventure at the time of the procedure; I10 Essential (primary) hypertension; Z86.73 Personal history of transient ischemic attack (TIA), and cerebral infarction without residual deficits; Z88.5 Allergy status to narcotic agent; Z83.3 Family history of diabetes mellitus; Z82.49 Family history of ischemic heart disease and other diseases of the circulatory system; Y92.89 Other specified places as the place of occurrence of the external cause
CPT/HCPCS: 36415-UA; 71010-TC; 80048-TC; 80053-TC; 80061-TC; 81001-TC; 82140-TC; 82550-TC; 82607-90; 82746-90; 83605; 83735-TC; 83880-TC; 84484-TC; 85025-TC; 85610-TC; 85730-TC; 87086-90; 93005; 94760; J0696; J7042; Z7610